=== PATIENT | male | born 1960 | race Caucasian/White ===

== ENCOUNTER 2020-05-12 02:59 | Outpatient (CLI) | payer OTHER, SELFPAY ==
[2020-05-12 18:37] LABS: SARS-CoV-2 RNA PCR Negative
== END 2020-05-12 03:00 | disposition home or self-care (01) ==
LOC: ANHCOVIDDT 03:01
PROVIDERS: PCP Internal Medicine; Visit Provider Internal Medicine Gastroenterology
DX: Z01.812 Encounter for preprocedural laboratory examination (principal); Z20.828 Contact with and (suspected) exposure to other viral communicable diseases
CPT/HCPCS: 87635; C9803; U0003

== ENCOUNTER 2020-05-14 01:06 | Day surgery (SDC) | payer OTHER, SELFPAY ==
[2020-05-05 14:04] VITALS: BMI 34.7
[2020-05-14 06:46] VITALS: BP 134/87; PULSE 86; RESP 18; TEMP 36.7; O2SAT 96
[2020-05-14] MEDS: LACTATED RINGERS 1,000 ML 150 ML IV CONT (07:07)
--- NOTE | 2020-05-14 07:19 | P.HP_ITS ---
History of Present Illness History of Present Illness Consent: Risks, benefits, and alternatives have been discussed and questions answered. Patient agrees to proceed with procedure. Chief complaint: Hx Of Polyps Narrative: Asif Larios is a 59 year old W male referred for screening colonoscopy secondary history of colonic polyps. Patient's last colonoscopy was 7 years ago. In the interim his sister was diagnosed with colon cancer less than 60 years of age. Patient has had some mild change in bowel pattern occasional diarrhea constipation. [facility] Family History Family History Father Patient's father is Social History Social History Smoking status: Never smoker Second hand tobacco smoke exposure: No Alcohol intake: current Drinks per week: 10 Substance use: never Meds Home Medications and Allergies Home Medications Medication Instructions Recorded Confirmed Type losartan 50 mg tablet 50 mg PO DAILY 10/08/19 05/14/20 History sildenafil (pulm.hypertension) 20 20 mg PO TID 10/08/19 05/05/20 History mg tablet Allergies Allergy/AdvReac Type Severity Reaction Status Date / Time Penicillins Allergy Mild hives, Verified 05/14/20 06:45 swelling Vital Signs Vital Signs - 24 hr 05/14/20 06:46 Temperature 36.7 C Pulse Rate 86 Respiratory Rate 18 Blood Pressure 134/87 Pulse Oximetry 96 Exam Const: Orientation/consciousness: patient oriented x3 Resp: Auscultation: clear to auscultation bilaterally Cardio: Rate: regular rate Rhythm: regular rhythm Heart sounds: no murmurs GI: GI Palp: Yes Soft to palpation, No Tenderness to palpation present (GI), Yes No hepatosplenomegaly present and No Palpable mass present Auscultation: normal bowel sounds Neuro: General: patient oriented x3 and no focal motor deficits Extrem: General: no pedal edema Assessment and Plan Additional Plan Screening colonoscopy in high risk patient
--- NOTE | 2020-05-14 07:44 | WPDANESEPPF ---
Anes - Initial Pre Proc Eval Procedure: Operation Date: 05/14/20 08:00 Proposed Procedures p Screening Colonoscopy - Jogre Durbin MD Date/Time: 05/14/20 07:44 Surgeon: Jorge Durbin MD Pre Op Diagnosis: Hx Of Polyps Patient Data Age: 59 Gender: M Height: 6 ft Weight: 121.1 kg Last Vital Signs Temp 98.1 F 05/14/20 06:46 Pulse 86 05/14/20 06:46 Resp 18 05/14/20 06:46 BP 134/87 05/14/20 06:46 Pulse Ox 96 05/14/20 06:46 Allergies Allergy/AdvReac Type Severity Reaction Status Date / Time Penicillins Allergy Mild hives, Verified 05/14/20 06:45 swelling Home Medications Medication Instructions Recorded Confirmed Type losartan 50 mg tablet 50 mg PO DAILY 10/08/19 05/14/20 History sildenafil (pulm.hypertension) 20 20 mg PO TID 10/08/19 05/05/20 History mg tablet Patient hx anesthesia problems: none Family hx anesthesia problems: none PMFSH Past Medical History Medical History (Updated 05/14/20 @ 07:44 by Asif Claire MD) Hypertension SUSHMA (obstructive sleep apnea) Family History Family History Father Patient's father is Social History Social History Smoking status: Never smoker Second hand tobacco smoke exposure: No Alcohol intake: current Drinks per week: 10 Substance use: never Anes - Eval Final PreProcedure Day of Procedure 05/14/20 07:44 Patient weight: obese Heart: regular rate and rhythm Lungs: clear to auscultation Airway: Mallampati scale class II Neurological: alert and oriented Last oral intake: >/= 8 hours ASA classification: II Emergent: no Anesthetic plan: proceed Anesthesia type and monitoring: general GIVS and standard monitoring Informed Consent: The patient's anesthetic plan and its attendant risks and benefits were discussed with the patient/family/POA. Questions were solicited and answers provided to the satisfaction of the patient/family/POA.
[2020-05-14] MEDS: SIMETHICONE ORAL SUSPENSION 20 MG/0.3 ML 30 ML BOTTLE 0.6 ML IRRIGATION (08:25)
[2020-05-14 08:47] VITALS: BP 131/72; PULSE 76; RESP 19; O2SAT 96
[2020-05-14 08:57] VITALS: BP 105/69; PULSE 76; RESP 18; O2SAT 97
[2020-05-14 09:07] VITALS: BP 117/75; PULSE 71; RESP 23; O2SAT 96
== END 2020-05-14 09:22 | disposition home or self-care (01) ==
PROVIDERS: PCP Internal Medicine; Visit Provider Internal Medicine Gastroenterology
PROC: 0DJD8ZZ Inspection of Lower Intestinal Tract, Via Natural or Artificial Opening Endoscopic (ICD-10-PCS; CPT 45378; principal; 2020-05-14 08:00)
DX: Z12.11 Encounter for screening for malignant neoplasm of colon (principal); D12.5 Benign neoplasm of sigmoid colon; K57.30 Diverticulosis of large intestine without perforation or abscess without bleeding; K64.4 Residual hemorrhoidal skin tags; Z80.0 Family history of malignant neoplasm of digestive organs; I10 Essential (primary) hypertension; G47.33 Obstructive sleep apnea (adult) (pediatric); E66.9 Obesity, unspecified; Z68.36 Body mass index [BMI] 36.0-36.9, adult
CPT/HCPCS: 45388; 87635; 88305; C9803; J2704; J7120; U0003

== ENCOUNTER 2020-10-29 08:21 | Outpatient (CLI) | payer OTHER, SELFPAY ==
--- NOTE | 2020-10-29 11:30 | NEURO_ITS ---
Impression: # Complains of pain and numbness of left more than right hand. # Severe left Carpal Tunnel Syndrome. # Moderate right Carpal Tunnel Syndrome. # No ulnar neuropathy. # Needle/EMG exam mild neurogenic changes in APB bilaterally Nerve Conduction Studies Anti Sensory Summary Table Stim Site NR Peak (ms) P-T Amp (?V) Site1 Site2 Delta-P (ms) Dist (cm) Sid (m/s) Left Median Anti Sensory (2-3nd Digit) NO RESPONSE Wrist NR Wrist 2-3nd Digit 14.0 Wrist NR Wrist 2-3nd Digit 14.0 Right Median Anti Sensory (2-3nd Digit) Wrist 5.4 5.9 Wrist 2-3nd Digit 5.4 14.0 26 Wrist 6.6 18.7 Wrist 2-3nd Digit 5.4 14.0 26 Left Radial Anti Sensory (Base 1st Digit) Wrist 2.3 9.8 Wrist Base 1st Digit 2.3 0.0 Right Radial Anti Sensory (Base 1st Digit) Wrist 2.8 9.6 Wrist Base 1st Digit 2.8 0.0 Left Ulnar Anti Sensory (5th Digit) Wrist 2.7 37.2 Wrist 5th Digit 2.7 14.0 52 Right Ulnar Anti Sensory (5th Digit) Wrist 2.8 30.0 Wrist 5th Digit 2.8 14.0 50 Motor Summary Table Stim Site NR Onset (ms) O-P Amp (mV) Site1 Site2 Delta-0 (ms) Dist (cm) Sid (m/s) Left Median Motor (Abd Poll Brev) Wrist 7.3 0.4 Elbow Wrist 5.4 29.0 54 Elbow 12.7 0.1 Right Median Motor (Abd Poll Brev) Wrist 4.5 1.1 Elbow Wrist 5.6 28.0 50 Elbow 10.1 1.5 Left Ulnar Motor (Abd Dig Minimi) Wrist 2.7 4.7 A Elbow Wrist 5.2 30.0 58 A Elbow 7.9 3.5 Right Ulnar Motor (Abd Dig Minimi) Wrist 2.5 4.3 A Elbow Wrist 5.6 31.0 55 A Elbow 8.1 3.9 F Wave Studies NR F-Lat (ms) L-R F-Lat (ms) Left Median (Mrkrs) (Abd Poll Brev) 32.16 1.70 Right Median (Mrkrs) (Abd Poll Brev) 30.47 1.70 Left Ulnar (Mrkrs) (Abd Dig Min) 30.42 0.43 Right Ulnar (Mrkrs) (Abd Dig Min) 30.85 0.43 EMG Side Muscle Nerve Root Ins Act Fibs Amp Dur Recrt Comment Right 1stDorInt Ulnar C8-T1 Nml Nml Nml Nml Nml Right Ext Indicis Radial (Post Int) C7-8 Nml Nml Nml Nml Nml Right Ext Digitorum Radial (Post Int) C7-8 Nml Nml Nml Nml Nml Right BrachioRad Radial C5-6 Nml Nml Nml Nml Nml Right PronatorTeres Median C6-7 Nml Nml Nml Nml Nml Right Abd Poll Brev Median C8-T1 Nml Nml Nml >12ms Reduced Left 1stDorInt Ulnar C8-T1 Nml Nml Nml Nml Nml Left Ext Indicis Radial (Post Int) C7-8 Nml Nml Nml Nml Nml Left Ext Digitorum Radial (Post Int) C7-8 Nml Nml Nml Nml Nml Left BrachioRad Radial C5-6 Nml Nml Nml Nml Nml Left PronatorTeres Median C6-7 Nml Nml Nml Nml Nml Left Abd Poll Brev Median C8-T1 Nml Nml Nml >12ms Reduced Right ABD Dig Min Ulnar C8-T1 Nml Nml Nml Nml Nml Left ABD Dig Min Ulnar C8-T1 Nml Nml Nml Nml Nml MTDD
== END 2020-10-29 08:22 | disposition home or self-care (01) ==
PROVIDERS: PCP Internal Medicine; Visit Provider Physician Assistant
DX: M79.642 Pain in left hand (principal); M79.641 Pain in right hand; G56.03 Carpal tunnel syndrome, bilateral upper limbs
CPT/HCPCS: 95886; 95911

== ENCOUNTER 2020-11-10 14:24 | Outpatient (CLI) | payer OTHER, SELFPAY ==
[2020-11-10 14:42] LABS: Basophils Absolute Auto 0.1 K/mm3 (0.0-0.1); Basophils Percent Auto 0.7 % (0.2-1.2); Eosinophils Absolute Auto 0.2 K/mm3 (0-0.3); Eosinophils Percent Auto 1.8 % (0-4.4); Hematocrit 44.2 % (42.0-52.0); Hemoglobin 14.3 g/dL (14.0-18.0); Immature Granulocyte Absolute 0.04 K/mm3 (0.00-0.031); Immature Granulocyte Percent A 0.5 % (0-0.5); Lymphocytes Absolute Auto 2.36 K/mm3 (0.9-3.2); Lymphocytes Percent Auto 27.3 % (18.3-44.2); Mean Corpuscular HGB Conc 32.4 g/dl (32-36); Mean Corpuscular Hemoglobin 27.1 pg (26-34); Mean Corpuscular Volume 83.9 fl (80-100); Monocytes Absolute Auto 0.7 K/mm3 (0.1-0.6); Monocytes Percent Auto 7.7 % (2.6-8.5); Neutrophils Absolute Auto 5.4 K/mm3 (1.3-6.7); Platelet Count Result 239 k/mm3 (150-375); Red Blood Count 5.27 M/mm3 (4.6-6.20); Red Cell Distribution Width 14.3 % (11.5-14.5); White Blood Count 8.7 K/mm3 (4.5-10.0)
[2020-11-10 14:56] LABS: CRP 0.7 mg/dL (<1.0); Rheumatoid Factor < 8.6 IU/ML (<12); Uric Acid 4.7 mg/dL (3.5-8.5)
[2020-11-10 15:18] LABS: Erythrocyte Sedimentation Rate 7 mm/hr (0-20)
== END 2020-11-10 14:25 | disposition home or self-care (01) ==
PROVIDERS: PCP Internal Medicine; Visit Provider Orthopaedic Surgery
DX: M17.0 Bilateral primary osteoarthritis of knee (principal); M06.9 Rheumatoid arthritis, unspecified
CPT/HCPCS: 36415; 84550; 85025; 85652; 86038; 86140; 86430

== ENCOUNTER 2020-12-18 12:03 | Outpatient (CLI) | payer OTHER, SELFPAY ==
[2020-12-18 12:53] LABS: Basophils Absolute Auto 0.1 K/mm3 (0.0-0.1); Basophils Percent Auto 0.9 % (0.2-1.2); Eosinophils Absolute Auto 0.2 K/mm3 (0-0.3); Eosinophils Percent Auto 1.8 % (0-4.4); Hematocrit 44.6 % (42.0-52.0); Hemoglobin 14.4 g/dL (14.0-18.0); Immature Granulocyte Absolute 0.11 K/mm3 (0.00-0.031); Immature Granulocyte Percent A 1.2 % (0-0.5); Lymphocytes Absolute Auto 2.14 K/mm3 (0.9-3.2); Lymphocytes Percent Auto 23.8 % (18.3-44.2); Mean Corpuscular HGB Conc 32.3 g/dl (32-36); Mean Corpuscular Hemoglobin 26.6 pg (26-34); Mean Corpuscular Volume 82.4 fl (80-100); Mean Platelet Volume 9.2 fl (7.4-10.4); Monocytes Absolute Auto 0.7 K/mm3 (0.1-0.6); Monocytes Percent Auto 7.6 % (2.6-8.5); Neutrophils Absolute Auto 5.8 K/mm3 (1.3-6.7); Neutrophils Percent Auto 64.7 % (45.5-73.1); Platelet Count Result 306 k/mm3 (150-375); Red Blood Count 5.41 M/mm3 (4.6-6.20); Red Cell Distribution Width 14.1 % (11.5-14.5)
[2020-12-18 13:06] LABS: Alanine Aminotransferase 44 U/L (4-50); Albumin Level 4.3 g/dL (3.5-5.1); Alkaline Phosphatase 62 U/L (38-126); Anion Gap 7 mmol/L (8-16); Aspartate Amino Transferase 31 U/L (17-59); Bilirubin,Total 0.7 mg/dL (0.2-1.3); Blood Urea Nitrogen 16 mg/dL (9-20); Calcium 9.3 mg/dL (8.4-10.2); Carbon Dioxide 29 mmol/L (22-30); Chloride 104 mmol/L (98-107); Cholesterol 144 mg/dL (0-200); Estimated Glomerular Filt Rate > 60; Glucose 99 mg/dL (75-110); HDL Direct 31 mg/dL; Sodium 140 mmol/L (137-145); Triglycerides 166 mg/dL (<150)
[2020-12-18 13:12] LABS: Potassium 4.1 mmol/L (3.4-5.0)
[2020-12-18 13:16] LABS: LDL Cholesterol Direct 79 mg/dL
[2020-12-22 14:06] LABS: Testosterone Free 32.2 pg/mL (35.0-155.0); Testosterone Total 290 ng/dL (250-1100)
== END 2020-12-18 12:04 | disposition home or self-care (01) ==
LOC: ANHLAB 12:04
PROVIDERS: PCP Internal Medicine; Visit Provider Internal Medicine
DX: Z00.00 Encounter for general adult medical examination without abnormal findings (principal); E29.1 Testicular hypofunction; R53.83 Other fatigue
CPT/HCPCS: 36415; 80053; 80061; 82607; 82746; 84402; 84403; 84443; 85025

== ENCOUNTER 2022-06-16 10:15 | Outpatient (CLI) | payer MEDICARE, SELFPAY ==
[2022-06-16 10:59] LABS: Alanine Aminotransferase 71 U/L (6-50); Albumin Level 4.3 g/dL (3.5-5.1); Alkaline Phosphatase 83 U/L (38-126); Anion Gap 10 mmol/L (8-16); Aspartate Amino Transferase 51 U/L (17-59); Bilirubin,Total 0.4 mg/dL (0.2-1.3); Blood Urea Nitrogen 19 mg/dL (9-20); Calcium 8.8 mg/dL (8.4-10.2); Carbon Dioxide 24 mmol/L (22-30); Chloride 105 mmol/L (98-107); Estimated Glomerular Filt Rate > 60; Glucose 110 mg/dL (65-110); Potassium 4.1 mmol/L (3.4-5.0); Sodium 139 mmol/L (137-145)
[2022-06-16 12:07] LABS: Prostate Specific Antigen 0.8 ng/mL (< OR = 4.0)
[2022-06-16 12:42] LABS: Folic Acid 12.7 ng/mL (2.76->20)
== END 2022-06-16 10:16 | disposition home or self-care (01) ==
PROVIDERS: PCP Internal Medicine; Visit Provider Physician Assistant
DX: Z12.5 Encounter for screening for malignant neoplasm of prostate (principal)
CPT/HCPCS: 36415; 80053; 82607; 82746; 84153; G0103

== ENCOUNTER 2023-06-15 07:20 | Outpatient (CLI) | payer MEDICARE, SELFPAY ==
[2023-06-15 08:17] LABS: Basophils Absolute Auto 0.1 K/mm3 (0.0-0.1); Basophils Percent Auto 0.7 % (0.2-1.2); Eosinophils Absolute Auto 0.2 K/mm3 (0-0.3); Hematocrit 43.8 % (42.0-52.0); Hemoglobin 13.8 g/dL (14.0-18.0); Immature Granulocyte Absolute 0.04 K/mm3 (0.00-0.031); Immature Granulocyte Percent A 0.4 % (0-0.5); Lymphocytes Absolute Auto 2.42 K/mm3 (0.9-3.2); Lymphocytes Percent Auto 27.2 % (18.3-44.2); Mean Corpuscular HGB Conc 31.5 g/dl (32-36); Mean Corpuscular Hemoglobin 26.7 pg (26-34); Mean Corpuscular Volume 84.9 fl (80-100); Mean Platelet Volume 9.6 fl (7.4-10.4); Monocytes Absolute Auto 0.7 K/mm3 (0.1-0.6); Monocytes Percent Auto 7.5 % (2.6-8.5); Neutrophils Absolute Auto 5.5 K/mm3 (1.3-6.7); Neutrophils Percent Auto 62.2 % (45.5-73.1); Platelet Count Result 312 k/mm3 (150-375); Red Blood Count 5.16 M/mm3 (4.6-6.20); Red Cell Distribution Width 14.2 % (11.5-14.5); White Blood Count 8.9 K/mm3 (4.5-10.0)
[2023-06-15 08:59] LABS: Alanine Aminotransferase 41 U/L (6-50); Albumin Level 4.4 g/dL (3.5-5.1); Alkaline Phosphatase 71 U/L (38-126); Anion Gap 8 mmol/L (8-16); Aspartate Amino Transferase 37 U/L (17-59); Bilirubin,Total 0.7 mg/dL (0.2-1.3); Blood Urea Nitrogen 20 mg/dL (9-20); Calcium 8.9 mg/dL (8.4-10.2); Carbon Dioxide 25 mmol/L (22-30); Chloride 105 mmol/L (98-107); Cholesterol 126 mg/dL (0-200); Estimated Glomerular Filt Rate > 60; Glucose 100 mg/dL (65-110); HDL Direct 32 mg/dL; Potassium 3.9 mmol/L (3.4-5.0); Sodium 138 mmol/L (137-145); Triglycerides 159 mg/dL (<150)
[2023-06-15 09:10] LABS: LDL Cholesterol Direct 70 mg/dL
[2023-06-15 09:23] LABS: Prostate Specific Antigen 0.7 ng/mL (< OR = 4.0)
== END 2023-06-15 07:21 | disposition home or self-care (01) ==
PROVIDERS: PCP Internal Medicine; Visit Provider Internal Medicine
DX: R74.8 Abnormal levels of other serum enzymes (principal); R73.9 Hyperglycemia, unspecified; R53.83 Other fatigue; I10 Essential (primary) hypertension; Z12.5 Encounter for screening for malignant neoplasm of prostate
CPT/HCPCS: 36415; 80053; 80061; 84153; 84443; 85025; G0103

== ENCOUNTER 2023-11-10 00:42 | Day surgery (SDC) | payer MEDICARE, SELFPAY ==
[2023-10-20 09:15] VITALS: BMI 34.9
--- NOTE | 2023-11-08 14:56 | SUR.PREOP ---
Time and date of procedure confirmed with pt.
--- NOTE | 2023-11-09 12:41 | PM.HPGS ---
History of Present Illness History of Present Illness Consent: Risks, benefits, and alternatives have been discussed and questions answered. Patient agrees to proceed with procedure. Chief complaint: hx colon polyps Narrative: Asif Larios is a 63 year old male With history of colon polyps. His last colonoscopy was 4 years ago. He has had polyps removed on many occasions including his last colonoscopy. Review of Systems Review of Systems: All systems reviewed & are unremarkable except as noted in HPI and below PMFSH Past Medical History Medical History Bilateral hand numbness Carpal tunnel syndrome on both sides Hypertension SUSHMA (obstructive sleep apnea) Family History Family History Father Patient's father is Social History Social History Smoking status: Never smoker Second hand tobacco smoke exposure: No Alcohol intake: current Drinks per week: 10 Substance use: never Substance use type: does not use Lack of Transportation: No Lack of Food: Never True Current Housing: I Have Housing Concerned About Future Housing: No Difficulty Paying Gas/Electric Bills: No Difficulty Paying for Meds: No Currently Unemployed: No Education: Associate Degree Difficulty w/ Childcare or Family Care: No Living arrangements: alone Spiritual care concerns: No Meds Home Medications and Allergies Home Medications Medication Instructions Recorded Confirmed Type losartan 50 mg tablet 50 mg PO DAILY #90 tabs 05/22/23 11/10/23 Rx cetirizine 10 mg capsule (Zyrtec) 10 mg PO DAILY 10/20/23 11/10/23 History Allergies Allergy/AdvReac Type Severity Reaction Status Date / Time Penicillins Allergy Mild hives, Verified 11/10/23 08:23 swelling Exam Resp: Auscultation: clear to auscultation bilaterally Cardio: Rate: regular rate Rhythm: regular rhythm GI: GI Palp: Yes Soft to palpation and No Tenderness to palpation present (GI) Assessment and Plan Assessment and plan (1) Colon cancer screening: Code(s): Z12.11 - Encounter for screening for malignant neoplasm of colon Status: Acute Assessment and Plan: Colonoscopy with possible biopsy or polypectomy or cautery or injection of substances.
[2023-11-10 08:25] VITALS: BP 153/87; PULSE 84; RESP 16; TEMP 36.5; O2SAT 99
[2023-11-10] MEDS: LACTATED RINGERS 1,000 ML 150 ML IV CONT (08:36)
--- NOTE | 2023-11-10 09:05 | P.PNAN_ITS ---
Anes - Initial Pre Proc Eval Procedure: Operation Date: 11/10/23 09:30 Proposed Procedures p Colonoscopy - Elliott Perez MD Date/Time: 11/10/23 09:05 Surgeon: Elliott Perez MD Pre Op Diagnosis: hx colon polyps Patient Data Age: 63 Gender: M Height: 1.8 m Weight: 120.3 kg Last Vital Signs Temp 36.5 C 11/10/23 08:25 Pulse 84 11/10/23 08:25 Resp 16 11/10/23 08:25 BP 153/87 H 11/10/23 08:25 Pulse Ox 99 11/10/23 08:25 O2 Del Method Room Air 11/10/23 08:25 Allergies Allergy/AdvReac Type Severity Reaction Status Date / Time Penicillins Allergy Mild hives, Verified 11/10/23 08:23 swelling Home Medications Medication Instructions Recorded Confirmed Type losartan 50 mg tablet 50 mg PO DAILY #90 tabs 05/22/23 11/10/23 Rx cetirizine 10 mg capsule (Zyrtec) 10 mg PO DAILY 10/20/23 11/10/23 History Patient hx anesthesia problems: none Family hx anesthesia problems: none Results Review: All pre-operative results and documents have been reviewed as part of the pre- operative evaluation. [facility] Past Medical History Medical History Bilateral hand numbness Carpal tunnel syndrome on both sides Hypertension SUSHMA (obstructive sleep apnea) Family History Family History Father Patient's father is Social History Social History Smoking status: Never smoker Second hand tobacco smoke exposure: No Alcohol intake: current Drinks per week: 10 Substance use: never Substance use type: does not use Lack of Transportation: No Lack of Food: Never True Current Housing: I Have Housing Concerned About Future Housing: No Difficulty Paying Gas/Electric Bills: No Difficulty Paying for Meds: No Currently Unemployed: No Education: Associate Degree Difficulty w/ Childcare or Family Care: No Living arrangements: alone Spiritual care concerns: No Anes - Eval Final PreProcedure Day of Procedure 11/10/23 09:05 Patient weight: obese Heart: regular rate and rhythm Lungs: clear to auscultation Airway: Mallampati scale class II Neurological: alert and oriented Last oral intake: >/= 8 hours ASA classification: III Emergent: no Anesthetic plan: proceed Anesthesia type and monitoring: general GIVS and standard monitoring Results Review: All pre-operative results and documents have been reviewed as part of the pre- operative evaluation. Informed Consent: The patient's anesthetic plan and its attendant risks and benefits were discussed with the patient/family/POA. Questions were solicited and answers provided to the satisfaction of the patient/family/POA.
[2023-11-10 09:56] VITALS: BP 103/55; PULSE 80; RESP 22; O2SAT 98
[2023-11-10 10:06] VITALS: BP 125/57; PULSE 75; RESP 18; O2SAT 98
[2023-11-10 10:16] VITALS: BP 120/68; PULSE 77; RESP 18; O2SAT 99
== END 2023-11-10 10:22 | disposition home or self-care (01) ==
PROVIDERS: PCP Internal Medicine; Visit Provider Internal Medicine Gastroenterology
PROC: 0DJD8ZZ Inspection of Lower Intestinal Tract, Via Natural or Artificial Opening Endoscopic (ICD-10-PCS; CPT 45378; principal; 2023-11-10 09:30)
DX: Z12.11 Encounter for screening for malignant neoplasm of colon (principal); K62.1 Rectal polyp; K57.30 Diverticulosis of large intestine without perforation or abscess without bleeding; I10 Essential (primary) hypertension; G47.33 Obstructive sleep apnea (adult) (pediatric); G56.03 Carpal tunnel syndrome, bilateral upper limbs; E66.9 Obesity, unspecified; Z68.37 Body mass index [BMI] 37.0-37.9, adult
CPT/HCPCS: 45380; 88305; J2704; J7120

== ENCOUNTER 2024-10-02 10:34 | Outpatient (CLI) | payer MEDICARE, SELFPAY ==
[2024-10-02 11:00] LABS: Basophils Absolute Auto 0.1 K/mm3 (0.0-0.1); Basophils Percent Auto 0.8 % (0.2-1.2); Eosinophils Absolute Auto 0.1 K/mm3 (0-0.3); Eosinophils Percent Auto 1.4 % (0-4.4); Hemoglobin 15.3 g/dL (14.0-18.0); Immature Granulocyte Absolute 0.04 K/mm3 (0.00-0.031); Immature Granulocyte Percent A 0.5 % (0-0.5); Lymphocytes Absolute Auto 2.31 K/mm3 (0.9-3.2); Lymphocytes Percent Auto 28.9 % (18.3-44.2); Mean Corpuscular HGB Conc 31.9 g/dl (32-36); Mean Corpuscular Hemoglobin 26.9 pg (26-34); Mean Corpuscular Volume 84.4 fl (80-100); Mean Platelet Volume 9.6 fl (7.4-10.4); Monocytes Absolute Auto 0.5 K/mm3 (0.1-0.6); Monocytes Percent Auto 6.8 % (2.6-8.5); Neutrophils Absolute Auto 4.9 K/mm3 (1.3-6.7); Neutrophils Percent Auto 61.6 % (45.5-73.1); Platelet Count Result 256 k/mm3 (150-375); Red Blood Count 5.69 M/mm3 (4.6-6.20)
[2024-10-02 11:19] LABS: Potassium 4.4 mmol/L (3.4-5.0)
[2024-10-02 11:21] LABS: Alanine Aminotransferase 42 U/L (6-50); Albumin Level 4.5 g/dL (3.5-5.1); Alkaline Phosphatase 69 U/L (38-126); Anion Gap 12 mmol/L (4-12); Aspartate Amino Transferase 32 U/L (17-59); Blood Urea Nitrogen 20 mg/dL (9-20); Calcium 9.5 mg/dL (8.4-10.2); Carbon Dioxide 23 mmol/L (22-30); Chloride 105 mmol/L (98-107); Cholesterol 149 mg/dL (0-200); Estimated Glomerular Filt Rate > 60; Glucose 107 mg/dL (65-110); HDL Direct 31 mg/dL; Sodium 140 mmol/L (137-145); Triglycerides 137 mg/dL (<150)
[2024-10-02 11:31] LABS: LDL Cholesterol Direct 84 mg/dL
[2024-10-02 11:41] LABS: Hemoglobin A1C 6.2 % (<5.7)
--- OUTSIDE RECORDS SUMMARY | 2024-10-03 23:17 | XMS_ITS | Referral Summary ---
Author Organization [facility] Address [address] [place] [address] Care Team Providers Care Pupil Personnel Services Director Name Role Phone Nabeel Davis MD Primary Care Provider [phone] Source Comments [facility],non-owned Affiliates and Associated Physician Practices is amultiple site organization consisting of ambulatory clinics and hospital sitesin [place], [place], [place] and [place]. This disclosure is being madepursuant to the Care Everywhere program and may not contain all information available regarding this patient. Last updated 18.[facility] Allergies Active Allergy Reactions Criticality Noted Date Comments Penicillins Urticaria,Swelling Medium 08/04/2019 Immunizations Name Administration Dates Next Due INFLUENZA VACCINE, QUADR. (F LUZONE; FLULAVAL; FLUARIX; AFLURIA QUADRIVALENT; 6MO+), 0.5 ML (IIV4) 08/04/2019 iNFLUENZA VACCINE, RECOM-SAWYER, QUADR. (FLUBLOCK QUADRIVALENT; 18Y+) (RIV4) 07/23/2018 Social History Tobacco Use Types Packs/Day Years Used Date Smoking Tobacco: Never Assessed Sex and Gender Information Value Date Recorded Sex Assigned at Not on file Gender Identity Not on file Sexual Orientation Not on file Plan of Treatment Not on file Care Teams Pupil Personnel Services Director Relationship Specialty Start Date End Date Nabeel Davis MD [address] [place] [address] PCP - General 05/15/20
--- OUTSIDE RECORDS SUMMARY | 2024-10-03 23:17 | XMS_ITS | Clinical Summary ---
Author Organization [facility] Address [address] [place] [address] Care Team Providers Care Strike On Machine Operator Name Role Phone Nabeel Davis MD Primary Care Provider Source Comments [facility],non-owned Affiliates and Associated Physician Practices is amultiple site organization consisting of ambulatory clinics and hospital sitesin [place] and [place]. This disclosure is being madepursuant to the Care Everywhere program and may not contain all information available regarding this patient. Last updated 18.[facility] Allergies Active Allergy Reactions Criticality Noted Date [...] Orientation Not on file Plan of Treatment Health Maintenance Due Date Last Done Comments COLOGUARD (AGES 45-75) - COL ON CA SCREENING 1959 COLON MONITORING 1959 COLONOSCOPY - COLON CA SCREENING 1959 CT COLONOGRAPHY - COLON CA SCREENING 1959 Colorectal Cancer Screening 1959 FIT - COLON CA SCREENING 1959 FLEX SIG - COLON CA SCREENING 1959 LIPID TESTING 1959 HIV SCREENING 1974 HEPATITIS C SCREENING 05/29/1977 DTAP/TDAP/TD VACCINES (1 - Tdap) 1978 PNEUMOCOCCAL VACCINE 50+ (1 of 1 - PCV) 2009 ZOSTER VACCINE (1 of 2) 2009 COVID-19 VACCINE (1 - 2023-2 5 season) 2024 INFLUENZA VACCINE (#1) 2024 9, 07/23/2018 DEPRESSION SCREENING 09/11/2024 Respiratory Syncytial Virus (RSV) Vaccine Pt: or over 60 yrs (1 - 1-dose 75+ series) 2034 HEPATITIS B VACCINE Aged Out No longe r eligible based on patient's age to complete this topic HIB VACCINE Aged Out No longer eligi ble based on patient's age to complete this topic HPV VACCINE Aged Out No longer eligi ble based on patient's age to complete this topic MENINGOCOCCAL (Group B) VACCINE Aged Out No longer eligible b ased on patient's age to complete this topic MENINGOCOCCAL VACCINE Aged Out No lourdes salomón eligible based on patient's age to complete this topic Care Teams Strike On Machine Operator Relationship Specialty Start Date End Date Nbaeel Davis MD [address] [place] [address] PCP - General 05/15/20
--- OUTSIDE RECORDS SUMMARY | 2024-10-03 23:17 | XMS_ITS | Data Portability ---
Author Organization [facility], Main Office Address [address] [place] [address] Care Team Providers Care Hand Lens Polisher Name Role Phone MILLY PENALOZA Primary Care Provider MILLY PENALOZA Referring Provider Assessment Encounter Date Assessment Date Assessment LastModified by Organization Details LastModified Time 07/28/2023 07/28/2023 HPI: 63-year-old male came in today for evaluation of his bilateral hand pain. He initially came in because he thought he has carpal tunnel was starting up again. He had dealt with carpal tunnel approximately 10 years ago in his hands. Is getting numbness and was wearing a wrist brace about 10 years ago on the right hand about 3 years ago on left hand. He states he had EMG study several years ago which showed he has some mild carpal tunnel syndrome. He did not have a copy this with him today. 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 he states that his hands occasionally would be sore and achy but overall his symptoms were very tolerable. The numbness and tingling went away on its own and he has not had any of that for several years. Patient's chief complaint is that he developed COVID in late May of this year. For several weeks he was not active at all. He states that all of his joints were aching in his body while he was dealing with this. Since that time he has been having achiness and stiffness in both hands. It was more significant at 1st but it is improving at this point where he is able to move his hands and fingers with a lot less discomfort. He was thinking that this was carpal tunnel starting up again. Again he is having no numbness or tingling in the hands. Physical exam: Patient does have relatively full range of motion of all of his fingers. He has arthritic nodes in the the IP joints the index and long finger in both hands. His left MP joint of his index finger is enlarged from previous surgery due to the arthritis. There is no swelling to the fingers or the hands. 2+ radial pulse in both wrists. Again he is complaining no numbness or tingling in the fingers or in the hands. Full range of motion both wrists without discomfort. 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 I reviewed and discussed x-ray findings with him in detail. Again he is not having any numbness in the hands and I do not think this is carpal tunnel syndrome. I think that with his lack of activities for several weeks well he was dealing with COVID cause lot of stiffness in all of these joints and achiness in all these joints. He is already having improvement with his symptoms since he has been using the hands more at this point his symptoms are relatively tolerable. He is able take anti-inflammatori es and I recommend he start taking some [id number] anti-inflammatori es on a regular basis and he is going to be utilizing ibuprofen 600 mg twice a day at this point. Hopefully he will get back to using his hands normally as he was prior to his COVID infection. He was having no symptoms prior to this so I think that once he gets moving again this will improve his symptoms and hopefully become very tolerable form again. If he has symptoms of numbness and tingling this may need to be addressed with carpal tunnel release. Hopefully with the anti-inflammatori es and a bit more time all the symptoms will improve on their own. I discussed with him that this arthritis changes on the x-rays were there prior to the COVID and I think with just the inactivity he does create a lot of stiffness in his fingers from disuse . Things change or worsen he will call otherwise we will see him back as needed. 30 minutes was spent in treatment patient more than half of this in [id number] conversation [email or web address] Not available 07/28/2023 12:54:49 Plan of Treatment Reminders Order Date Submit Date Provider Last Modified By Organization Details Last Modified Time Details Appointments None record ed. Lab None record ed. Referral None record ed. Procedures None record ed. Surgeries None record ed. Imaging XR, hand 023 07/28/20 [email or web address] [facility] [place], [address], [place], [address], 16:28:15 Medication Orders None record ed. Patient TargetsNo targets recorded. Patient InstructionsNo instructions recorded. Reason for Referral None Reported. Results Created Date Observation Date Name Description Value Unit Range Abnormal Flag Note LastModifiedBy Organization Detail LastModifiedTime 07/21/2010/29/2020 nerve condu ction study No observ ation record ed. [email or web address] Not Available 07/12 16:08:07 07/28/20 XR, hand No observ ation record ed. [email or web address] [facility] [place] [address], [place], [address], 07/28/2023 12:48:03 Result Notes None recorded. Problems Name Problem SNOMED Code Status Onset Date Resolution Date Notes Provider Name and Address Organization Details Recorded Time Osteoarthr itis 151928798 Active Not Available [facility] 13:56:46 Derangemen t of knee 46118298 Active Not Available [facility] 13:56:46 Pain of bilateral hands [id number] 9109 Active 2022 JOSE Lai, [employer] 10:56:44 Problem Notes None recorded. Procedures Surgical History Date Name Laterality Status Provider Name and Address Organization Details Recorded Time Knee Replacement completed JOSE Christiansen [employer] 07/28/2023 10:54:43 Imaging Results Imaging Date Name Status LastModified by Organiz ation Details LastModified Time 10/29/2020 nerve conduction study completed [email or web address] Information not available 07/21/2023 16:08:07 07/28/2023 XR, hand completed [email or web address] [facility] [place] [address], [place], [address], 07/28/2023 12:48:03 Procedure Notes None recorded. Medical Equipment None Reported. Allergies Allergen ID Allergen Name Allergen Category Reaction Reaction Severity Criticality Documentation Date Start Date Code Code System Note Provider Name and Address Organization Details Recorded Time 33621 Product containin g penicilli n and antibioti c (product) medicatio n Not available Not available Not available 07/28/2023 05201 05 [facility]ED [facility] [employer] 10:52:58 Medications Name Sig Start Date Stop Date Status Note LastModified by Organization Details LastModified Time losartan 50 mg tablet active Not Available Not Available No t Available valacyclovi r 1 gram tablet 07/28 completed Not Available Not Available Not Available hydrocodone 5 mg-acetamin ophen 325 mg tablet 07/28 completed Not Available Not Available Not Available clindamycin HCl 150 mg capsule 07/28 completed Not Available Not Available Not Available tramadol 50 mg tablet 07/28 completed Not Available Not Available Not Available hydrocodone 7.5 mg-acetamin ophen 325 mg tablet 07/28 completed Not Available Not Available Not Available testosteron e cypionate 200 mg/mL intramuscul ar oil 07/28 completed Not Available Not Available Not Available sildenafil (pulmonary hypertensio n) 20 mg tablet TAKE 3 TABLETS BY MOUTH DIRECTED 07/28 completed Not Available Not Available Not Available Xarelto 10 mg tablet 07/28 completed Not Available Not Available Not Available Vitals Date Recorded Body height Body mass index (BMI) Body weight Provider Name and Address Organization Details Last Updated DateTime 07/28/2023 177.8 cm 36.2 kg/m2 425777.28 g JOSE Lai [facility] [email or web address] 07/28/2023 11:18:07 Social History Question Answer Notes LastModified by Organizat ion Details LastModified Time Tobacco Smoking Status Never Smoker JOSE Lai sandro [facility] [employer] 07/28/2023 10:54:37 What Is Your Level Of Alcohol Consumption? None [email or web address] Information not available 07/28/2023 Sex: Unknown Functional Status None recorded. Mental Status None recorded. Family History Relationship Description Onset Age of this Age Resolved Age Notes LastModified by Organization Details LastModified Time Father Heart disease [email or web address] Not available 2022 10:54:20 Father Family history of malignant neoplasm Not available 2022 10:54:29 Brother Heart disease [email or web address] Not available 2022 10:54:20 Mother Family history of malignant neoplasm [email or web address] Not available 2022 10:54:29 Medical History Condition Response HYPERTENSION Y Past Encounters Encounter ID Performer Location Encounter Start Date Encounter Closed Date Diagnosis/Indication Diagnosis SNOMED-CT Code Diagnosis ICD10 Code Diagnosis Note [id number] UMESH [facility] [place] [address] [place] [address] 07/28/2023 10:26:23 07/28/2023 12:58:03 Pain of bilateral hands [id number] 7301578 M79.641 M79.642 Health Concerns Section Related Observation LastModified by Organization Detai ls LastModified Time None Recorded Concern Status LastModified by Organization Details LastModified Time None Recorded Advance Directives Directive None Recorded Payers Encounter Date Sequence Insurance Name Policy Number Policy Faye Covered Member ID Faye Member ID Guarantor Name 07/28/2023 1 [employer] (MEDICARE REPLACEMENT/ ADVANTAGE - PPO) Asif Larios [id number] Asif Larios
--- OUTSIDE RECORDS SUMMARY | 2024-10-03 23:17 | XMS_ITS | Patient Health Summary ---
Author Organization [facility] Address [address] [place] [address] Care Team Providers Care Electrical Apprentice Name Role Phone Nabeel Davis MD Primary Care Provider Note from [facility],non-owned Affiliates and Associated Physician Practices is amultiple site organization consisting of ambulatory clinics and hospital sitesin [place], [place], [place] and [place]. This disclosure is being madepursuant to the Care Everywhere program and may not contain all information available regarding this patient. Last updated 18.[facility] Allergies * Penicillins(Urticaria,Swelling) -Medium Criticality Immunizations * INFLUENZA VACCINE, QUADR. (FLUZONE; FLULAVAL; FLUARIX; AFLURIA QUADRIVALENT; 6MO+), 0.5 ML (IIV4)(Given 08/04/2019) * iNFLUENZA VACCINE, RECOM-SAWYER, QUADR. (FLUBLOCK QUADRIVALENT; 18Y+) (RIV4)(Given 07/23/2018) Social History Tobacco Use Types Packs/Day Years Used Date Smoking Tobacco: Never Assessed Sex and Gender Information Value Date Recorded Sex Assigned at Not on file Gender Identity Not on file Sexual Orientation Not on file Care Teams Electrical Apprentice Relationship Specialty Start Date End Date Nabeel Davis MD [address] [place] [address] PCP - General 05/15/20
[2024-10-05 07:19] LABS: Testosterone Total 309 ng/dL (250-1100)
== END 2024-10-02 10:35 | disposition home or self-care (01) ==
PROVIDERS: PCP Internal Medicine; Visit Provider Internal Medicine
DX: E29.1 Testicular hypofunction (principal); R60.0 Localized edema; I10 Essential (primary) hypertension; R73.9 Hyperglycemia, unspecified; Z12.5 Encounter for screening for malignant neoplasm of prostate
CPT/HCPCS: 36415; 80053; 80061; 83036; 84153; 84403; 85025; G0103

== ENCOUNTER 2024-11-06 09:38 | Outpatient (RCR) | payer MEDICARE, SELFPAY ==
[2024-11-06 10:43] VITALS: BMI 37.0
[2024-11-06 10:44] VITALS: BMI 37.0
== END 2025-01-20 09:36 | disposition home or self-care (01) ==
LOC: ANHDMC 09:38
PROVIDERS: PCP Internal Medicine; Visit Provider Internal Medicine
DX: R63.4 Abnormal weight loss (principal); E11.9 Type 2 diabetes mellitus without complications; Z71.3 Dietary counseling and surveillance
CPT/HCPCS: 97802

== ENCOUNTER 2025-04-28 07:31 | Outpatient (CLI) | payer MEDICARE, SELFPAY ==
--- OUTSIDE RECORDS SUMMARY | 2025-04-28 07:34 | XMS_ITS | Clinical Summary ---
Author Organization [facility] Address [address] [place] [address] Care Team Providers Care Strategy Associate Name Role Phone Nabeel Davis MD Primary Care Provider Source Comments [facility],non-owned Affiliates and Associated Physician Practices is amultiple site organization consisting of ambulatory clinics and hospital sitesin [place], [place], [place] and [place]. This disclosure is being madepursuant to the Care Everywhere program and may not contain all information available regarding this patient. Last updated 18.[facility] Allergies Active Allergy Reactions Criticality Noted Date Comments Penicillins Urticaria,Swelling Medium 08/04/2019 Immunizations Immunization Administration Dates Next Due INFLUENZA VACCINE, QUADR. (F LUZONE; FLULAVAL; FLUARIX; AFLURIA QUADRIVALENT; 6MO+), 0.5 ML (IIV4) 08/04/2019 iNFLUENZA VACCINE, RECOM-SAWYER, QUADR. 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 Gender Identity Not on file Sexual Orientation [...] VACCINE (1 - 2023-2 5 season) 2024 DEPRESSION SCREENING 09/11/2024 INFLUENZA VACCINE (#1) 2025 9, 07/23/2018 Respiratory Syncytial Virus (RSV) Vaccine Pt: or [...] complete this topic MENINGOCOCCAL (Group B) VACCINE SHARED DECISION-MAKING Aged Out No longer eligible based on patient's age to complete this topic MENINGOCOCCAL GROUPS A/C/Y/W VACCINE Aged Out No longer eligible b ased on patient's age to complete this topic Insurance [employer] SELF PAY NO INSURANCE Member Subscriber Plan / Payer (Ef fective for All Dates) Name:Asif Gutierrez Member ID:Not on file Relation to Subscriber:Not on file Name:ASIF GUTIERREZ Subscriber ID:Not on file Address: [address] [place] [address] Payer ID:Not on file Group ID:Not on file Type:Self Pay Address: [place], [place] [employer] MEDICARE MANAGED CARE MEDICARE ADV SELF PAY NO INSURANCE Member Subscriber Plan / Payer (Ef fective for All Dates) Name:BrendaAsif christiansen Member ID:Not on file Relation to Subscriber:Not on file Name:ASIF GUTIERREZ Subscriber ID:Not on file Address: [place] [address] Payer ID:Not on file Group ID:Not on file Type:Self Pay Address: [place], [place] [employer]ARE MANAGED CARE MEDICARE ADV SELF PAY NO INSURANCE Member Subscriber Plan / Payer (Ef fective for All Dates) Name:Asif Gutierrez Member ID:Not on file Relation to Subscriber:Not on file Name:BRENDAASIF Subscriber ID:Not on file Address: [place] [address] Payer ID:Not on file Group ID:Not on file Type:Self Pay Address: [place], [place] Care Teams Strategy Associate Relationship Specialty Start Date End Date Nabeel Davis MD [address] [place] [address] PCP - General 05/15/20
[2025-04-28 08:13] LABS: Hemoglobin A1C 6.1 % (<5.7)
== END 2025-04-28 07:32 | disposition home or self-care (01) ==
LOC: ANHLAB 07:32
PROVIDERS: PCP Internal Medicine; Visit Provider Internal Medicine
DX: R73.9 Hyperglycemia, unspecified (principal); E29.1 Testicular hypofunction
CPT/HCPCS: 36415; 83036

== ENCOUNTER 2025-06-13 09:04 | Outpatient (CLI) | payer MEDICARE, SELFPAY ==
--- OUTSIDE RECORDS SUMMARY | 2009-04-09 10:30 | XMS_ITS | Continuity of Care Document ---
Author Organization [facility] Address [address] [place] [address] [address] [place] [address] Phone Care Team Providers Care Logger All Round Name Role Phone Whittaker OD, Cheo Unavailable Unavailable Procedures Procedure Date Office/outpatient Visit, Est Eye Exam Established Pt Eye Exam & Treatment Refraction Advance Directives Directive Yes / No Effective Date File Name No Information Encounters Encounter Description Practice Location Reason(s) For Visit Diagnoses Date Provider Providers Copied on Encounter Office/outpat ient Visit, Est [facility], [address] [place] [address] [address], [place], [place], [id number], tel:[phone] [facility] No Information 0-200 9 Whittaker OD Cheo. [address] , [address], [place], [place], [facility], . tel:[phone] [facility], [address], [place], [place], [id number], [place] tel:[phone] [facility] No Information 4-200 9 Whittaker OD Cheo. [address] , [address], [place], [address], [place]. tel:[phone] [facility], [address], [place], [place], [id number], [place] tel:[phone] [facility] No Information 5-200 9 Whittaker OD Cheo. [address] , [address], [place], [address], [place]. tel:[phone] Family History Family Member Type Diagnosis Age At Onset No Information Payers Payer name Insurance type Covered green party ID Authoriza tion(s) No Information Social History Type Description Quantity Date Captured Comments Sex Male Smoking Status No Information Chief Complaint And Reason For Visit No Information Reason For Referral Reason For Referral No Information History Of Present Illness Encounter Date Complaint History Of Prese nt Illness No Information Functional Status Date Functional Assessmen t No Information Instructions Date Instruction Additional Infor mation No Information Assessments Type Assessment Date No Information Patient Care Teams Name Effective Dates (start - stop) Status Members No Information
--- OUTSIDE RECORDS SUMMARY | 2025-06-13 09:12 | XMS_ITS | Clinical Summary ---
Author Organization [facility] Address [address] [place] [address] Care Team Providers Care Guide Changer Name Role Phone Nabeel Davis MD Primary Care Provider [phone] Source Comments [facility],non-owned Affiliates and Associated Physician Practices is amultiple site organization consisting of ambulatory clinics and hospital sitesin [place], [place], [place] and [place]. This disclosure is being madepursuant to the Care Everywhere program and may not contain all information available regarding this patient. 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 Gender Identity Not on file Sexual Orientation [...] COLON CA SCREENING 1959 LIPID TESTING 1959 HEPATITIS C SCREENING 05/29/1977 DTAP/TDAP/TD VACCINES (1 - Tdap) 1978 PNEUMOCOCCAL VACCINE 50+ (1 of 1 - PCV) 2009 ZOSTER VACCINE (1 of 2) 2009 DEPRESSION SCREENING 09/11/2024 COVID-19 VACCINE (1 - 2023-2 5 season) 2025 INFLUENZA VACCINE (#1) 2025 9, 07/23/2018 Respiratory [...] GUTIERREZ Subscriber ID:Not on file Address: [place] [address] Payer ID:Not on file Group ID:Not on file Type:Self Pay Address: [place], [place] [employer]ARE MANAGED CARE MEDICARE ADV SELF PAY NO INSURANCE Member Subscriber Plan / Payer (Ef fective for All Dates) Name:Asif Gutierrez Member ID:Not on file Relation to Subscriber:Not on file Name:BRENDAASIF Subscriber ID:Not on file Address: [place] [address] Payer ID:Not on file Group ID:Not on file Type:Self Pay Address: [place], [place] [employer]ARE MANAGED CARE MEDICARE ADV SELF PAY NO INSURANCE Member Subscriber Plan / Payer (Ef fective for All Dates) Name:BrendaLibanAsif Member ID:Not on file Relation to Subscriber:Not on file Name:ASIF GUTIERREZ Subscriber ID:Not on file Address: [place] [address] Payer ID:Not on file Group ID:Not on file Type:Self Pay Address: [place], [place] Care Teams Guide Changer Relationship Specialty Start Date End Date Nabeel Davis MD [address] [place] [id number] PCP - General 05/15/20
[2025-06-14 07:09] LABS: FSH 6.3 mIU/mL (1.5-12.4); LH 4.3 mIU/mL (1.7-8.6)
[2025-06-17 22:07] LABS: Free Testosterone (Direct) 1.7 pg/mL (6.6-18.1)
== END 2025-06-13 09:05 | disposition home or self-care (01) ==
PROVIDERS: PCP Internal Medicine; Visit Provider Internal Medicine
DX: E29.1 Testicular hypofunction (principal)
CPT/HCPCS: 83001; 83002; 84402; 84403